=== PATIENT | male | born 1980 | race African-American/Black ===

== ENCOUNTER 2016-07-23 01:44 | Emergency (ER) | payer SELFPAY ==
[~2016-07-23] VITALS: Ht 180.3 cm; Wt 75.0 kg
[2016-07-23 01:47] VITALS: BP 137/86; PULSE 77; RESP 16; TEMP 98.7; O2SAT 100
--- NOTE | 2016-07-23 02:13 | PD ---
HPI Chief Complaint: Eye Problems/Injury Time Seen by Provider: 02:05 Travel History International Travel<30 days: No Contact w/Intl Traveler<30days: No Traveled to known affect area: No History of Present Illness HPI 36-year-old male presents for evaluation of right eye irritation, foreign body sensation. He reports that he recently started working a new construction job and 2 days ago he was now or any sort of protective eye wear while he was doing things like using a pick ax. He started developing foreign body sensation and irritation in the right eye. Symptoms resolved eventually but then returned today and it lasted throughout the day which prompted evaluation. He tried washing the eye out at home with no relief. He does not wear contacts. No other complaints. [facility] Social History Alcohol Use: Yes Tobacco Use: No Allergies-Medications (Allergen,Severity, Reaction): Coded Allergies: No Known Allergies (Unverified , 07/23/16) Review of Systems General / Constitutional: No: Fever Eyes: Positive: Redness, Foreign Body Sensation, Pain, Tearing Physical Exam Narrative GENERAL: Well-developed well-nourished male in no acute distress SKIN: Warm and dry. HEAD: Atraumatic. Normocephalic. EYES: Pupils equal and round reactive to light extraocular muscles are intact. There is right eye conjunctival injection present. Right upper eyelid was everted and there was a piece of dirt or debris lodged underneath the upper eyelid. This was removed using a Q-tip. No additional foreign debris noted in the eye. Wood's lamp was performed and was negative for corneal uptake and negative Radha's. ENT: No nasal bleeding or discharge. Mucous membranes pink and moist. NECK: Trachea midline. No JVD. Data Data Last Documented VS Vital Signs Date Time Temp Pulse Resp B/P Pulse Ox O2 Delivery O2 Flow Rate FiO2 07/23/16 01:47 98.7 77 16 137/86 100 Room Air Orders Proparacaine 0.5% Opth Soln (Alcaine 0.5 (07/23/16 02:15) MDM Medical Decision Making Medical Screen Exam Complete: Yes Emergency Medical Condition: Yes Medical Record Reviewed: Yes Differential Diagnosis Corneal abrasion, retained foreign body, ruptured globe, corneal ulceration, iritis, conjunctivitis Narrative Course 36-year-old male with right eye irritation and foreign body sensation after working construction 2 days ago. Examination reveals a foreign body lodged underneath the upper eyelid which was removed using a Q-tip. There is no corneal abrasion. The patient feels improved after the removal of the foreign body. He is stable for discharge. Diagnosis Primary Impression: Foreign body of right eye Qualified Code: T15.91XA - Foreign body of right eye, initial encounter Additional Instructions: Always wear protective eye gear during construction work. Follow-up with primary care physician as needed. Return for any emergent medical conditions. Med/Other Pt SpecificInfo: No Change to Meds Disposition: 01 DISCHARGE HOME Condition: Stable Vladimir Banks Jul 23, 2016 02:13
[2016-07-23] MEDS ORDERED: PROPARACAINE HCL 0.5% OPHT SOLN 15 ML BTL LEFT EYE ONE (02:15)
== END 2016-07-23 02:33 | disposition home or self-care (01) ==
LOC: NEPD 01:44
DX: T15.91XA Foreign body on external eye, part unspecified, right eye, initial encounter (principal)
CPT/HCPCS: 99283